=== PATIENT | female | born 1995 | race Caucasian/White ===

== ENCOUNTER 2017-08-23 14:18 | Emergency (ER) | payer SELFPAY ==
[~2017-08-23] VITALS: Ht 160 cm; Wt 63.8 kg
[~2017-08-23 14:18] MED LIST: ADDE20 PO
[2017-08-23 14:30] VITALS: BP 107/70; PULSE 60; RESP 16; TEMP 98.1; O2SAT 100
[2017-08-23] MEDS ORDERED: PROPARACAINE HCL 0.5% OPHT SOLN 15 ML BTL RIGHT EYE ONE (15:00)
[2017-08-23] MEDS ORDERED: CIPR0.3S2 RIGHT EYE (15:24)
--- NOTE | 2017-08-23 15:26 | PD ---
HPI Chief Complaint: Eye Problems/Injury Time Seen by Provider: 14:49 Travel History International Travel<30 days: No Contact w/Intl Traveler<30days: No Traveled to known affect area: No History of Present Illness HPI 22-year-old female presents emergency department for evaluation of red eye injection, itchiness and irritation 2 days. Patient is a contact lens wearer. Patient denies any fevers, chills, malaise, headaches, abdominal pain, shortness of breath. Patient states her vision is blurry but she doesn't have her contacts in now and she typically has blurred vision without the contacts. Patient has no other major medical history and does not take any daily medication. Patient's only allergy is penicillin. [facility] Past Medical History Medical History: Denies Significant Hx ?: Not Past Surgical History Surgical History: No Previous Surgery Social History Alcohol Use: No Tobacco Use: Yes (11/15 ppd) Substance Use: No Allergies-Medications (Allergen,Severity, Reaction): Coded Allergies: penicillin G (Unverified Adverse Reaction, Unknown, Hives, 08/23/17) Reported Meds & Prescriptions Reported Meds & Active Scripts Active Adderall (Amphetamine-Dextroamphetamine) 20 Mg Tab 20 Mg PO BID fill after 12/15/16 Adderall (Amphetamine-Dextroamphetamine) 20 Mg Tab 20 Mg PO BID fill after 11/18/16 Adderall (Amphetamine-Dextroamphetamine) 20 Mg Tab 20 Mg PO BID Avoid late evening doses. Space doses at least 4 to 6 hours if more than once/day dosing. Review of Systems Except as stated in HPI: all other systems reviewed are Neg Physical Exam Narrative GENERAL: Well-nourished, well-developed patient. SKIN: Focused skin assessment warm/dry. HEAD: Normocephalic. EYES: Right eye injected. No fluorescein dye uptake noted. PERRLA demonstrated , extraocular motions intact bilaterally. Visual acuity: Right eye 20/200, left eye 20/100. NECK: Supple, trachea midline. No JVD or lymphadenopathy. CARDIOVASCULAR: Regular rate and rhythm without murmurs, gallops, or rubs. RESPIRATORY: Breath sounds equal bilaterally. No accessory muscle use. GASTROINTESTINAL: Abdomen soft, non-tender, nondistended. MUSCULOSKELETAL: No cyanosis, or edema. BACK: Nontender without obvious deformity. No CVA tenderness. Data Data Last Documented VS Vital Signs Date Time Temp Pulse Resp B/P (MAP) Pulse Ox O2 Delivery O2 Flow Rate FiO2 08/23/17 14:30 98.1 60 16 107/70 (82) 100 Orders Orders Proparacaine 0.5% Opth Soln (Alcaine 0.5 (08/23/17 15:00) MDM Medical Decision Making Medical Screen Exam Complete: Yes Emergency Medical Condition: Yes Differential Diagnosis Differential diagnoses include but not limited to bacterial conjunctivitis, viral conjunctivitis, corneal abrasion Narrative Course 22-year-old female presents to emergency department for evaluation of right eye injection, itching and irritation 2 days. Patient is contact lens wear. Patient states she does not believe she was poked in the eye with anything. Patient denies any sensation of foreign body in the eye. Patient states there is crusty discharge in her eyelashes when she wakes after sleeping. Patient did leave her contacts in place while she slept a couple days ago she says. Proparacaine solution administered to right eye and fluorescein dye and evaluated with the Hurt lamp. No fluorescein dye uptake noted. Based on patient's symptoms, clinical presentation, vital sign review and physical exam it is not necessary to admit the patient to the hospital or keep the patient in the emergency department for further evaluation. Patient will be given an antibacterial ophthalmic eyedrop and discharged home. Diagnosis Primary Impression: Acute conjunctivitis, right eye Qualified Codes: H10.31 - Unspecified acute conjunctivitis, right eye Patient Instructions: Conjunctivitis (ED), General Instructions Additional Instructions: Please return to emergency department if your symptoms return or worsen. Follow up with your primary care provider. Take medications as prescribed. May use warm compress to right eye to reduce pain and irritation. Med/Other Pt SpecificInfo: Prescription(s) given Scripts Ciprofloxacin Opth Drops (Ciprofloxacin Opth Drops) 0.3% Soln 2 DROP RIGHT EYE Q4H for Infection for 7 Days, #1 BOTTLE 0 Refills while awake x 5 days. Prov: Vanessa Allison Pamela SIMS 08/23/17 Disposition: 01 DISCHARGE HOME Condition: Stable Vanessa Allison Aug 23, 2017 15:26
[2017-08-23] MEDS ORDERED: CIPROFLOXACIN 0.3% OPTH SOLN 2.5 ML BTL RIGHT EYE ONE (15:30)
== END 2017-08-23 15:44 | disposition home or self-care (01) ==
LOC: PHEFT 14:18
DX: H10.31 Unspecified acute conjunctivitis, right eye (principal); F17.200 Nicotine dependence, unspecified, uncomplicated
CPT/HCPCS: 99283